=== PATIENT | female | born 1965 | race Caucasian/White ===

== ENCOUNTER 2018-03-08 00:43 | Outpatient (CLI) | payer BC, SELFPAY ==
--- NOTE | 2018-03-08 10:21 | DI.COMBO_ITS ---
SYMPTOM/DIAGNOSIS: F/U ABNL MAMMO, 6 MO FOLLOW UP, R92.8 RIGHT BREAST MAMMOGRAM AND RIGHT BREAST ULTRASOUND: Mammograms were interpreted according to the usual protocol including computer analysis with CAD system, tomosynthesis and C view imaging. Breast density, category B. No suspicious masses or microcalcifications are seen. The skin and axilla are unremarkable. There has been no significant change compared to the prior examination. A right breast ultrasound was performed of the upper outer quadrant. There is again seen a well circumscribed, anechoic, avascular lesion at the 11 o'clock position of the right breast consistent with a cyst. No suspicious masses are seen sonographically. IMPRESSION: No evidence for malignancy. Yearly mammography should resume. Category 2. The findings were discussed with the patient on the date of the examination. MQSA ASSESSMENT OF FINDINGS: Negative with benign findings. Category 2. Patient will receive a letter notifying them of these results. BI-RADS category B. There are scattered areas of fibroglandular density.
== END 2018-03-08 01:03 ==
PROVIDERS: Visit Provider Nurse Practitioner Family
DX: Z12.31 Encounter for screening mammogram for malignant neoplasm of breast (principal); R92.8 Other abnormal and inconclusive findings on diagnostic imaging of breast; N60.01 Solitary cyst of right breast
CPT/HCPCS: 76642; 77061; 77065; G0279

== ENCOUNTER 2018-10-31 09:15 | Outpatient (CLI) | payer BC, SELFPAY ==
[2018-10-31 13:24] LABS: Anion Gap 7.8 mmol/L (3-11); BUN 17 mg/dL (7-18); CO2 28.2 mmol/L (21.0-32.0); CREATININE 0.93 mg/dL (0.55-1.02); Calcium 9.1 mg/dL (8.5-10.1); Calculated LDL 196; Chloride 107 mmol/L (98-107); Cholesterol 266 mg/dL (50-200); Glucose 90 mg/dL (70-100); HDL Cholesterol 44 mg/dL (40-60); Potassium 5.1 mmol/L (3.5-5.1); Sodium 143 mmol/L (136-145); Triglyceride 132 mg/dL (30-150)
[2018-11-01 10:28] LABS: HIV-1/2 Ag & Ab Screen Negative (NEGAT)
== END 2018-10-31 09:35 ==
PROVIDERS: PCP Nurse Practitioner Family; Visit Provider Nurse Practitioner Family
DX: E78.5 Hyperlipidemia, unspecified (principal); Z11.4 Encounter for screening for human immunodeficiency virus [HIV]; Z13.1 Encounter for screening for diabetes mellitus
CPT/HCPCS: 36415; 80048; 80061; 83721; 87389

== ENCOUNTER 2019-01-06 07:32 | Outpatient (CLI) | payer BC, SELFPAY ==
[2019-01-06 09:04] LABS: Calculated LDL 113 mg/dL; Cholesterol 195 mg/dL (50-200); HDL Cholesterol 57 mg/dL (40-60); Triglyceride 125 mg/dL (30-150)
== END 2019-01-06 07:52 ==
PROVIDERS: PCP Nurse Practitioner Family; Visit Provider Nurse Practitioner Adult Health
DX: E78.5 Hyperlipidemia, unspecified (principal)
CPT/HCPCS: 36415; 80061; 83721

== ENCOUNTER 2019-04-24 08:47 | Outpatient (CLI) | payer BC, SELFPAY ==
--- NOTE | 2019-04-24 09:00 | DI.MAMMO_ITS ---
EXAM: MG MAMMO SCREENING CLINICAL HISTORY: screening z12.31 TECHNIQUE: Mammograms were interpreted according to the usual protocol including computer analysis w [email or web address] CAD system, tomosynthesis and C-view imaging. COMPARISON: 2018 FINDINGS: The breasts are composed of scattered areas of fibroglandular density, breast density category B. Th ere are no suspicious masses or suspicious microcalcifications. There has been no significant interva l change when compared with the prior images. IMPRESSION: Category 1, negative mammogram. Yearly screening mammography is recommended. BI-RADS Cat 1 - Negative Breast Density - Category B - Scattered areas of fibroglandular density
== END 2019-04-24 09:07 ==
PROVIDERS: PCP Nurse Practitioner Family; Visit Provider Nurse Practitioner Family
DX: Z12.31 Encounter for screening mammogram for malignant neoplasm of breast (principal)
CPT/HCPCS: 77063; 77067

== ENCOUNTER 2019-11-07 03:45 | Outpatient (CLI) | payer BC, SELFPAY ==
[2019-11-07 07:40] LABS: Anion Gap 9.7 mmol/L (3-11); BUN 11 mg/dL (7-18); CO2 26.3 mmol/L (21.0-32.0); CREATININE 0.86 mg/dL (0.55-1.02); Calcium 9.2 mg/dL (8.5-10.1); Calculated LDL 121 mg/dL (<100); Chloride 107 mmol/L (98-107); Cholesterol 212 mg/dL (<200); Glucose 87 mg/dL (74-106); HDL Cholesterol 66 mg/dL (40-60); Potassium 4.3 mmol/L (3.5-5.1); Sodium 143 mmol/L (136-145); Triglyceride 125 mg/dL (<150)
== END 2019-11-07 04:05 ==
PROVIDERS: PCP Nurse Practitioner Family; Visit Provider Nurse Practitioner Family
DX: E78.5 Hyperlipidemia, unspecified (principal); Z13.1 Encounter for screening for diabetes mellitus
CPT/HCPCS: 36415; 80048; 80061

== ENCOUNTER 2020-01-30 00:58 | Outpatient (CLI) | payer OTHER, SELFPAY ==
--- NOTE | 2020-01-30 07:30 | DI.RAD_ITS ---
EXAM: XR LUMBAR SPINE COMPLETE CLINICAL HISTORY: Hip vs. lumbar?, HIP PAIN RT, LOW BACK PAIN, M25.551, M54.5. TECHNIQUE: 2D digital imaging was performed. COMPARISON: CT RENAL COLIC WO CONTRAST from 06/26/2016 FINDINGS: There are 5 lumbar type vertebral bodies. There is grade 1 pseudo spondylolisthesis of L4 on L5. Th is has progressed since the CT scan from 06/26/2016. No spondylolysis is present. Disc space narrowi ng and endplate osteophytes are seen at L5-S1. There are degenerative changes of the facets at L4-5 and L5-S1. No acute fractures or subluxations are present. There are surgical clips in the right up per quadrant of the abdomen. IMPRESSION: 1. Degenerative changes in the lower lumbar spine. 2. Grade 1 pseudo spondylolisthesis of L4 on L5 which has progressed since 06/26/2016. DATA REPOSITORY: RADIATION DOSE DELIVERED:
--- NOTE | 2020-01-30 07:30 | DI.RAD_ITS ---
EXAM: XR HIP RT COMPLETE AP PELVIS CLINICAL HISTORY: Hip vs. SI joint?, PAIN RT HIP, M25.551. TECHNIQUE: 2D digital imaging was performed. COMPARISON: No exams were available for comparison FINDINGS: BONES: No acute fracture is present. No bony destructive lesion is seen. JOINTS: No dislocation present. SOFT TISSUE: Normal. IMPRESSION: Unremarkable radiographs of the right hip. Unremarkable radiographs of the pelvis. DATA REPOSITORY: RADIATION DOSE DELIVERED:
== END 2020-01-30 01:18 ==
PROVIDERS: PCP Nurse Practitioner Family; Visit Provider Nurse Practitioner Family
DX: M47.816 Spondylosis without myelopathy or radiculopathy, lumbar region (principal); M43.16 Spondylolisthesis, lumbar region; M25.551 Pain in right hip
CPT/HCPCS: 72110; 73502

== ENCOUNTER 2020-05-07 00:51 | Outpatient (CLI) | payer OTHER, SELFPAY ==
--- NOTE | 2020-05-07 11:46 | DI.MAMMO_ITS ---
EXAM: MAMMO SCREENING CLINICAL HISTORY: screening,Z12.39 TECHNIQUE: Mammograms were interpreted according to the usual protocol including computer analysis w [employer] CAD system, tomosynthesis and C-view imaging. COMPARISON: FINDINGS: The breasts are of moderate density with fairly symmetrical distribution of fibroglandular tissue. N o dominant mass or clumped microcalcification is identified in either breast. The current examinatio n is compared with previous examinations including March 2019 and there has been no gross interval change in appearance in comparison with the prior studies. IMPRESSION: No specific evidence of malignancy at this time. Routine screening examinations are suggested yearly intervals in this age group according to the ACS ACR guidelines. BI-RADS Category 1 - Negative Breast Density - Category B - Scattered areas of fibroglandular density
== END 2020-05-07 01:11 ==
PROVIDERS: PCP Nurse Practitioner Family; Visit Provider Nurse Practitioner Family
DX: Z12.31 Encounter for screening mammogram for malignant neoplasm of breast (principal)
CPT/HCPCS: 77063; 77067

== ENCOUNTER 2020-08-24 22:41 | Emergency (ER) | payer OTHER, SELFPAY ==
[2020-08-24 22:46] VITALS: BP 122/80; PULSE 113; RESP 18; TEMP 36.6; O2SAT 99
--- NOTE | 2020-08-24 22:58 | ED.GENADUL_ITS ---
Discharge Plan Disposition Patient Disposition: HOME Condition: Good Discharge Details Clinical Impression: Pain, dental, Acute pulpitis Primary Care Provider: Radha Leyva ED Provider: Kahlil Sandoval Home Meds and New Rx's Prescriptions: New penicillin V potassium 500 mg tablet 500 mg PO QID 10 Days Qty: 40 RF: 0 Continued aspirin 81 mg tablet,delayed release (DR/EC) 81 mg PO DAILY RF: 0 Women's 50 Plus Multivitamin 400 mcg-500 mg calcium-20 mcg tablet 1 tab PO RF: 0 atorvastatin 80 mg tablet 80 mg PO DAILY Qty: 90 RF: 3 Discharge Instructions Instructions: Penicillin V (By mouth), Hydrocodone/Acetaminophen (By mouth), Toothache (ED) Additional Instructions: At this time you have a mild infection of your tooth but no abscess that needs drainage. You have decided to defer the numbing injection at this time however if you change your mind at any point you can come back for a dental block. Please continue to take Tylenol and Motrin for pain. Please take the antibiotic penicillin as directed. Your prescription has been electronically faxed to your [facility] drugstore. Please take the pain pill [place] only as needed. The pain pill does contain some Tylenol, and so do not take additional Tylenol with this. Please contact your dentist as soon as possible for reassessment. If you notice any worsening of your symptoms, or any new symptoms such as vomiting, diarrhea, fever, chills, shortness of breath, chest pain, numbness, weakness, or fainting , please return immediately to the emergency department for reevaluation. Please follow up with your primary care provider as soon as possible for reassessment and reevaluation. As always, it was a pleasure participating in your medical care today. Referrals: Radha Leyva NP [Primary Care Provider] - Discharge Data Discharge Date/Time-TO BE ENTERED AT DEPARTURE: 08/24/20 23:20 Medical Decision Making 55-year-old female with a past medical history of dental caries presents today for evaluation of left upper tooth pain. Patient states that for the past 2 weeks she has had mild pain in the left upper area, she does not have a dentist. She has been taking Tylenol and Motrin which has been helping until the last few days. She denies any drainage or discharge. She denies any difficulty swallowing or drinking. She denies fever or chills. No recent antibiotics. No other complaints at this time. Exam demonstrates mild dental caries, no periapical abscess. Vital signs stable, afebrile, no evidence of systemic disease. Patient does not want a dental block at this time. Will give antibiotics/penicillin, recommend Tylenol and Motrin for home use. Will give [place] to go as needed for pain. Will give dental sheet. Discussed red flags which to return. I have extensively reviewed the treatment plan and discharge instructions with the patient. I have addressed all patient concerns at this time. The patient was made aware of what symptoms to monitor for that would warrant a return to the emergency department. Discussed the plan with the patient, they demonstrate verbal understanding and agreement with our assessment and plan at this time. The documentation in this chart was dictated using [employer] dictation software. Please excuse any dictation errors. HPI General Date/Time Provider Initiated Documentation: 08/24/20 22:50 . HPI Narrative: 55-year-old female with a past medical history of dental caries presents today for evaluation of left upper tooth pain. Patient states that for the past 2 weeks she has had mild pain in the left upper area, she does not have a dentist. She has been taking Tylenol and Motrin which has been helping until the last few days. She denies any drainage or discharge. She denies any difficulty swallowing or drinking. She denies fever or chills. No recent antibiotics. No other complaints at this time. Related Data Home Medications Medication Instructions Recorded Confirmed [id number] ac 400 1 tab PO 01/09/19 01/25/20 mcg-calcium carb 500 mg-vit K1 20 mcg tablet aspirin 81 mg tablet,delayed 81 mg PO DAILY 11/02/19 08/24/20 release atorvastatin 80 mg tablet 80 mg PO DAILY #90 tab-cap 11/08/19 08/24/20 penicillin V potassium 500 mg PO QID 10 Days #40 tab 08/24/20 Previous Rx's Medication Instructions Recorded atorvastatin 80 mg tablet 80 mg PO DAILY #90 tab-cap 11/08/19 penicillin V potassium 500 mg PO QID 10 Days #40 tab 08/24/20 Allergies Allergy/AdvReac Type Severity Reaction Status Date / Time codeine AdvReac Intermediate migraines Unverified 08/24/20 22:49 oxycodone HCl [From Percocet] AdvReac Intermediate GI Upset Unverified 08/24/20 22:49 General Stated Complaint: DentalOral ELIAS: 3 Review of Systems All systems reviewed & are unremarkable except as noted in HPI and below PFSH Medical History 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 Jordan) said pt did not need to do further pap smears (last pap in 2002 was WNL) Cholecystitis (07/21/12) Chronic low back pain (11/19/14) Hot flashes (11/19/14) Hyperlipidemia 10/2018 labs: LDL > 190; 10/2019 labs: Increased from 40 to 80 mg due to LDL not at goal Osteochondromatosis (12/24/14) Surgical History Abdominal hysterectomy 1997 section three Cholecystectomy (07/07/12) Laparoscopic, Dr. Evans Knee surgery four times Ligation of fallopian tube 1993 Meniscectomy (03/12/15) partial left knee Dr Montaño Family History Father , Dementia at age 82. Alcohol abuse Neoplasm Bladder CA Myocardial infarction related to stress Cancer Bladder cancer Mother , COPD at age 63. COPD (chronic obstructive pulmonary disease) Grandmother Diabetes Essential hypertension Stroke Sister Diabetes Maternal Uncle Heart disease Myocardial infarction Maternal Aunt Heart disease Myocardial infarction Sister Hyperlipidemia Cancer Brain cancer Brother Alcohol abuse Grandmother , Cancer Neoplasm ?type (thinks was fruit dumper related) Breast cancer Social History Smoking/Tobacco Use Status: Never Smoking risk assessment performed?: Yes Alcohol Intake: former Drug use: Never Substance use type: does not use Adopted: No Caregiver/Support person: No Foster care: No Household members: none Number of Children: 3 Communication Needs: None current occupation: Cannery Worker Pets and animals: Yes Pets and animals: cat(s) Sexually active: No Current gender identity: female What type of physical activity do you participate in: walking Duration: 30-45 minutes/day Frequency: daily Seatbelt use: always Water heater temp set <120 deg: Yes Working smoke detector in home: Yes Fire extinguisher in home: Yes Carbon monox detector in home: No Firearms in home: No Do you feel safe in your relationship?: Yes Female Reproductive History Menstrual Menopause type: surgical Exam Narrative Exam Narrative: 1.Const: Well-nourished, Well-developed, appearing stated age 2.Eyes: PERRL, no conjunctival injection, and symmetrical lids. 3.ENT: Atraumatic external nose and ears. Moist MM. Neck: Symmetric, trachea midline, No thyromegaly. Mild dental caries, old cavity noted in the left upper teeth around tooth 12. No large periapical swelling or abscess that I can appreciate. No drainage. No evidence of Ludewig's angina, airway compromise or other abnormality. 4.CVS: +S1/S2, No murmurs or gallops. Peripheral pulses 2+ and equal in all extremities. Brisk capillary refill in all extremities. 5.RESP: Unlabored respiratory effort. Clear to auscultation bilaterally. No wheezes rales or rhonchi 6.GI: Soft, Nontender/Nondistended, No hepatosplenomegaly. No guarding or rebound. 7.MSK: Normocephalic/Atraumatic, Extremities w/o deformity or ttp No cyanosis or clubbing, Normal movement of all extremities 8.Skin: Warm, Dry. No rashes or lesions. 9.Neuro: bracelet and brooch maker II-XII grossly intact. Sensation grossly intact, no focal neurologic deficits. 10.Psych: (AAO) x3. Appropriate mood and affect Course Vital Signs Vital signs: Vital Signs Temperature 36.6 C 08/24/20 22:46 Pulse 113 H 08/24/20 22:46 Respiratory Rate 18 08/24/20 22:46 Blood Pressure 122/80 08/24/20 22:46 Pulse Oximetry 99 08/24/20 22:46 Temperature 36.6 C 08/24/20 22:46 Pulse 113 H 08/24/20 22:46 Respiratory Rate 18 08/24/20 22:46 Respiratory Effort Non-Labored 08/24/20 22:50 Blood Pressure 122/80 08/24/20 22:46 Pulse Oximetry 99 08/24/20 22:46 Pain Level 10 08/24/20 22:50
[2020-08-24] MEDS: Penicillin V POTASSIUM 500 MG TAB, 4 TABS/BTL PO (23:05)
== END 2020-08-24 23:20 | disposition home or self-care (01) ==
PROVIDERS: Emergency Provider Student in an Organized Health Care Education/Training Program; PCP Nurse Practitioner Family
DX: K04.01 Reversible pulpitis (principal)
CPT/HCPCS: 99283

== ENCOUNTER 2020-11-05 03:45 | Outpatient (CLI) | payer OTHER, SELFPAY ==
[2020-11-05 07:40] LABS: HCT 37.2 % (36.0-46.0); HGB 11.8 g/dL (11.2-15.7); MCH 29.4 pg (27.0-33.0); MCHC 31.7 % (32.0-36.0); MCV 92.5 fL (80-95); MPV 9.5 fL (8.0-11.0); Platelet Count 252 10^3/uL (130-400); RBC 4.02 10^6/uL (3.93-5.22); RDW 12.5 % (11.7-14.6); WBC 4.26 10^3/uL (4.4-10.8)
[2020-11-05 08:39] LABS: Anion Gap 6.7 mmol/L (3-11); BUN 19 mg/dL (7-18); CO2 29.3 mmol/L (21.0-32.0); Calcium 9.2 mg/dL (8.5-10.1); Calculated LDL 119 mg/dL (<100); Chloride 110 mmol/L (98-107); Cholesterol 200 mg/dL (<200); Estimated GFR 57.78 (mL/min/1.73m2); Glucose 100 mg/dL (74-106); HDL Cholesterol 61 mg/dL (40-60); Sodium 146 mmol/L (136-145); Triglyceride 101 mg/dL (<150)
[2020-11-06 11:01] LABS: Hepatitis C Ab w Rflx HCV PCR Negative (Negative)
== END 2020-11-05 03:46 | disposition home or self-care (01) ==
LOC: LBO 03:45
PROVIDERS: PCP Nurse Practitioner Family; Visit Provider Nurse Practitioner Family
DX: E78.5 Hyperlipidemia, unspecified (principal); Z79.899 Other long term (current) drug therapy; Z11.59 Encounter for screening for other viral diseases; Z13.1 Encounter for screening for diabetes mellitus
CPT/HCPCS: 36415; 80048; 80061; 85027; 86803

== ENCOUNTER 2020-11-14 09:54 | Outpatient (REF) | payer OTHER, SELFPAY ==
[2020-11-14 21:12] LABS: COMMENT (LAB VIEW ONLY) 396.55 mg/dL; Microalb ug/mg Crea 9.2 ug/mg Cr
== END 2020-11-14 09:55 | disposition home or self-care (01) ==
LOC: LBN 09:54
PROVIDERS: PCP Nurse Practitioner Family; Visit Provider Nurse Practitioner Family
DX: N28.9 Disorder of kidney and ureter, unspecified (principal)
CPT/HCPCS: 82043; 82570

== ENCOUNTER 2020-11-28 10:43 | Outpatient (CLI) | payer OTHER, SELFPAY ==
--- NOTE | 2020-11-28 10:15 | DI.RAD_ITS ---
Exam(s) XR KNEE LT 3V AP,LAT,ELDA EXAM: XR KNEE LT 3V AP,LAT,ELDA CLINICAL HISTORY: LEFT KNEE PAIN. TECHNIQUE: 2D digital imaging was performed. COMPARISON: CR LEFT KNEE 4+ VIEWS from 12/24/2014 FINDINGS: There is no evidence of acute fracture. However, there does appear to be a joint effusion which was not evident in 2015. There are mild degenerative changes. There is soft tissue swelling posteriorly behind the knee and multiple calcifications again noted in this region. These may represent loose b odies within of the medic may represent loose bodies. On the frontal view there is soft tissues swel ling-abnormal density located medially. Consistent with some type of soft tissue mass, possibly dege nerative large in degenerative meniscal cyst or more concerning mass. MRI recommended. IMPRESSION: Findings as above. MRI recommended. DATA REPOSITORY: RADIATION DOSE DELIVERED:
== END 2020-11-28 10:44 | disposition home or self-care (01) ==
LOC: DIORS 10:44
PROVIDERS: PCP Nurse Practitioner Family; Referring Provider Nurse Practitioner Family; Visit Provider Student in an Organized Health Care Education/Training Program
DX: M17.12 Unilateral primary osteoarthritis, left knee (principal)
CPT/HCPCS: 73562

== ENCOUNTER 2020-12-31 02:08 | Outpatient (CLI) | payer OTHER, SELFPAY ==
--- NOTE | 2020-12-31 07:15 | DI.MRI_ITS ---
Exam(s) MR LOWER JOINT LT WO EXAM: MR LOWER JOINT LT WO CLINICAL HISTORY: knee pain, oa lt knee, m17.12. TECHNIQUE: Multiplanar multisequence MRI was performed. 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 Prior MRI was obtained in 2014. That examination showed multiple synovial masses in the left knee. Findings on today's ex amination are similar, with lobulated multi focal masses identified which appear to originate from sy novium at multiple locations. The infrapatellar and suprapatellar regions are mostly spared.. No co nvincing bony erosion seen. The MR findings may represent synovial chondromatosis, other etiologies including PV NS are not excluded. Additional evaluation with gradient echo imaging could be obtained to rule out PVNS. There is a small joint effusion. The articular cartilage of all 3 joints of the knee appears slightl y thinned but otherwise intact. No tear of the medial or lateral menisci or attachments identified. No collateral ligament injury id entified medially or laterally. The anterior and posterior cruciate ligaments and attachments appear intact. Quadriceps tendon and patellar tendon appear intact. No patellar retinacular tear seen. IMPRESSION: Stable appearance of synovial masses of the knee since 2015 examination. No evidence of internal jocelyn angement at this time. If there is differential consideration for PVNS, additional evaluation with gradient echo imaging cou ld be obtained. DATA REPOSITORY:
== END 2020-12-31 02:28 ==
PROVIDERS: PCP Nurse Practitioner Family; Visit Provider Student in an Organized Health Care Education/Training Program
DX: M17.12 Unilateral primary osteoarthritis, left knee (principal); M67.862 Other specified disorders of synovium, left knee
CPT/HCPCS: 73721

== ENCOUNTER 2021-03-17 02:41 | Outpatient (CLI) | payer OTHER, SELFPAY ==
[2021-03-17 11:39] LABS: Source Nasal/Nares
[2021-03-17 20:55] LABS: COVID-19 PCR Negative (Negative)
== END 2021-03-17 02:42 | disposition home or self-care (01) ==
LOC: LBO 02:41
PROVIDERS: PCP Nurse Practitioner Family; Referring Provider Student in an Organized Health Care Education/Training Program; Visit Provider Student in an Organized Health Care Education/Training Program
DX: Z20.822 Contact with and (suspected) exposure to COVID-19 (principal); Z01.818 Encounter for other preprocedural examination
CPT/HCPCS: 87635

== ENCOUNTER 2021-03-18 10:00 | Day surgery (SDC) | payer OTHER, SELFPAY ==
[2021-03-18] VITALS (10 sets, daily range): BP systolic 120–148; BP diastolic 71–103; PULSE 53–66; RESP 12–18; TEMP 36.1–36.5; O2SAT 96–100; BMI 29.8
--- NOTE | 2021-03-18 09:32 | PDOC.DSDIS_ITS ---
Documented by User: ELIANE Cotton 03/18/21 09:34 Discharge Plan Disposition Patient Disposition: HOME Condition: Good Discharge Details Reason For Visit: Left Knee Arthroscopy Attending Provider: Spencer Montaño Primary Care Provider: Radha Leyva Home Meds and New Rx's Prescriptions: New acetaminophen [Tylenol Extra Strength] 500 mg tablet 500 mg PO Q6H PRNQty: 90 RF: 0 ibuprofen 600 mg tablet 600 mg PO TID Qty: 90 RF: 0 hydrocodone-acetaminophen 5-325 mg tablet 1 tab PO Q4H PRN (Reason: pain) Qty: 14 RF: 0 Continued aspirin 81 mg tablet,delayed release (DR/EC) 81 mg PO DAILY RF: 0 atorvastatin 80 mg tablet 80 mg PO DAILY Qty: 90 RF: 3 Women's 50 Plus Multivitamin 400 mcg-500 mg calcium-20 mcg tablet 1 tab PO DAILY RF: 0 Discharge Instructions Stand Alone Forms: [facility] Knee Arthroscopy Referrals: Spencer Montaño MD [ [facility] STAFF PHYSICIAN] - Equipment/Supplies: Partial Weight Bearing Crutches Activity:: Activity as Tolerated Remove Dressings/Wound Care:: 72 hours Shower/Bathe:: 72 hours Diet:: As Tolerated Discharge Orders Discharge Orders: Discharge Order (Routine); Ordered 03/18/21 Ordered By: Monika Thakkar DS: Diagnosis Discharge Diagnosis (1) Internal derangement of left knee: Status: Acute (2) Loose body in knee, left knee: Status: Acute Documented by User: Spencer Montaño MD 03/18/21 12:33 Discharge Plan Disposition Patient Disposition: HOME Condition: Good Discharge Details Reason For Visit: Left Knee Arthroscopy Attending Provider: Spencer Montaño Primary Care Provider: Radha Leyva Home Meds and New Rx's Prescriptions: New acetaminophen [Tylenol Extra Strength] 500 mg tablet 500 mg PO Q6H PRNQty: 90 RF: 0 ibuprofen 600 mg tablet 600 mg PO TID Qty: 90 RF: 0 hydrocodone-acetaminophen 5-325 mg tablet 1 tab PO Q4H PRN (Reason: pain) Qty: 14 RF: 0 Continued aspirin 81 mg tablet,delayed release (DR/EC) 81 mg PO DAILY RF: 0 atorvastatin 80 mg tablet 80 mg PO DAILY Qty: 90 RF: 3 Women's 50 Plus Multivitamin 400 mcg-500 mg calcium-20 mcg tablet 1 tab PO DAILY RF: 0 Discharge Instructions Stand Alone Forms: [facility] K[facility] Arthroscopy Referrals: Spencer Montaño MD [ [facility] STAFF PHYSICIAN] - Equipment/Supplies: Partial Weight Bearing Crutches Activity:: Activity as Tolerated Remove Dressings/Wound Care:: 72 hours Shower/Bathe:: 72 hours Diet:: As Tolerated Discharge Orders Discharge Orders: Discharge Order (Routine); Ordered 03/18/21 Ordered By: Monika Thakkar
--- NOTE | 2021-03-18 10:45 | ANES.PREOP_ITS ---
General Info Date of Service Date Performed: 03/18/21 Height: 5 ft 2.5 in Weight: 75.3 kg Body Mass Index (BMI): 29.8 Surgical Procedure: Operation Date: 03/18/21 12:10 Proposed Procedures Side Surgeon p Knee Arthroscopy WITH REMOVAL LOOSE BODIES AND SYNOVECTOMY Left Spencer Montaño MD Meds Allergies and Home Medications Allergies Allergy/AdvReac Type Severity Reaction Status Date / Time codeine AdvReac Intermediate migraines Verified 03/18/21 10:18 oxycodone HCl [From Percocet] AdvReac Intermediate GI Upset Verified 03/18/21 10:18 Home Medication Medication Instructions Recorded [id number]-idp-artjf ac 400 1 tab PO DAILY 01/09/19 mcg-calcium carb 500 mg-vit K1 20 mcg tablet aspirin 81 mg tablet,delayed 81 mg PO DAILY 11/02/19 release atorvastatin 80 mg tablet 80 mg PO DAILY #90 tab-cap 11/14/20 acetaminophen [Tylenol Extra 500 mg PO Q6H PRN #90 tab 03/18/21 Strength] ibuprofen 600 mg PO TID #90 tab 03/18/21 Current Visit Medications: Current Medications Generic Name Dose Route Start Last Admin Trade Name Freq PRN Reason Stop Dose Admin Acetaminophen 650 mg 03/18/21 09:30 Acetaminophen 325 Mg Tab PO Q4H PRN PRN Hydrocodone Bitart/Acetaminophen 0 tab 03/18/21 09:30 Hydrocodone 5/Acetaminophen 325 Tab PO Q3H PRN PRN Pain Ondansetron HCl 4 mg/ Sodium 52 mls @ 200 mls/hr 03/18/21 09:30 Chloride IVPB Q6H PRN PRN Ringer's Solution 1,000 mls @ 80 mls/hr 03/18/21 06:00 IV 04/17/21 23:59 INFUSION BRENT Cefazolin Sodium/Dextrose 2 gm in 50 mls @ 100 mls/hr 03/18/21 06:00 Ancef Duplex IVPB 04/17/21 23:59 PREOP BRENT IV Miscellaneous Supplies 1 each 03/18/21 06:00 Iv Access IV 04/17/21 23:59 DIRECTED BRENT Sodium Chloride 0 ml 03/18/21 06:00 Normal Saline Flush 10 Ml Syr IV 04/17/21 23:59 PRN PRN Sodium Chloride 0 ml 03/18/21 06:00 Normal Saline 10 Ml Vial IJ 04/17/21 23:59 DIRECTED PRN Sterile Water 0 ml 03/18/21 06:00 Water,Injection,Sterile 10 Ml Vial IJ 04/17/21 23:59 DIRECTED PRN PFSH Active Problems Active Problems: Problem Status Onset Code Hip pain, right M25.551 Acute pulpitis K04.01 Loose body in knee, left knee M23.42 Internal derangement of left knee M23.92 Osteoarthritis of left knee M17.12 Obesity E66.9 Osteochondromatosis 12/24/14 D48.0 Hyperlipidemia E78.5 Chronic low back pain 11/19/14 M54.5, G89.29 Arthritis of neck 11/19/14 M47.812 Medical History Medical History 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 Jordan) said pt did not need to do further pap smears (last pap in 2002 was WNL) Cholecystitis (07/21/12) Chronic low back pain (11/19/14) Hot flashes (11/19/14) Hyperlipidemia 10/2020 labs: LDL still slightly high on high intensity statin therapy Obesity Osteoarthritis of left knee Osteochondromatosis (12/24/14) Surgical History Surgical History Abdominal hysterectomy 1997 section three Cholecystectomy (07/07/12) Laparoscopic, Dr. Evans Hx of tubal ligation Knee surgery x6 Ligation of fallopian tube 1994 Meniscectomy (03/12/15) partial left knee Dr Montaño Tobacco Smoking/Tobacco Use Status: Never Passive smoking exposure: No Alcohol Alcohol Intake: never Details: pt reports that she has not drank for many years Substance Use Substance use: Never Substance use type: does not use Vital Signs and Lab Results Vital Signs Most Recent Vital Signs in EMR: Most Recent Vital Signs Temp Pulse Resp BP Pulse Ox 36.4 C L 66 16 140/93 H 97 03/18/21 10:08 03/18/21 10:08 03/18/21 10:08 03/18/21 10:08 03/18/21 10:08 Lab Results Blood Type / Crossmatch: No Data to Display Complete Blood Count: No Data to Display Complete Metabolic Panel: No Data to Display Liver Function Panel: No Data to Display Coagulation Panel: No Data to Display Cardiac Panel: No Data to Display Arterial Blood Gas: No Data to Display Venous Blood Gas: No Data to Display Pancreas Panel: No Data to Display Thyroid Panel: No Data to Display Infectious Disease: Coronavirus (COVID-19)(PCR) Negative (Negative) 03/17/21 08:45 03/17/21 Coronavirus 2019 Source Nasal/Nares 03/17/21 08:45 03/17/21 Blood Cultures: No Data to Display Toxicology Panel: No Data to Display Panel: No Data to Display Anesthesia Assessment and Plan Anesthesia History Personal History: No History of Anesthesia Complications Family History: No Family History of Anesthesia Complications Exercise Tolerance Exercise Tolerance: Metabolic Equivalents>4 Pertinent Negatives Pertinent Negatives: No Symptoms of GERD, No Major Cardiovascular Symptoms or Complaints and No Major Pulmonary Symptoms or Complaints Cardiac & Pulmonary Exam Cardiac Exam: Normal S1/S2 Heart Sounds Pulmonary Exam: Clear Bilateral Breath Sounds Airway Exam Known Difficult Airway: No Mallampati Class: 2 Mouth Opening: Normal (> 3cm) Thyromental Distance: Greater than 3 cm Neck Range of Motion: Full ROM Neck Circumference: Normal Teeth Condition: Normal Dentition ASA Classification ASA Score: ASA 2 Emergency Case?: No NPO Status NPO Status: NPO Clears >2 hours, Solids >8 hours Status Status: Negative HCG Anesthesia Plan Resuscitation Status: Full Code Anesthesia Technique: General Anesthesia Airway Planned: LMA Pain Management: Surgeon and patient request nerve block Monitors Used: Standard Monitors
[2021-03-18] MEDS: Lactated Ringers 1,000 ML 80 ML IV (11:30)
[2021-03-18] MEDS: ceFAZolin 2 GM/50 ML BAG IVPB (11:33)
[2021-03-18] MEDS: Bupivacaine 0.5% Pres-Free 30 ML VIAL (12:19)
[2021-03-18] MEDS: fentaNYL 100 MCG/2 ML VIAL IVP (13:35)
--- NOTE | 2021-03-18 13:56 | W.PM.OP ---
Date of service: 03/18/21 Time of Service: 12:35 Operative Note Operative Note DATE OF PROCEDURE: 03/18/21 PRE-OP DIAGNOSIS: Left Knee Synovial Chondromatosis POST-OP DIAGNOSIS: same Left Knee Medial Full Thickness Chondral Defect PROCEDURE: Arthroscopic Synovectomy and Removal of Loose Bodies - Left Knee SURGEON: Spencer Montaño ANESTHESIA TYPE: General LMA/ETT Refer to Anesthesia Record ESTIMATED BLOOD LOSS: 0 PATHOLOGY: none sent TOURNIQUET TIME: 0 COMPLICATIONS: None Patient was transported to: PACU Patient's condition: stable Indications: I have seen Shelia in clinic for symptoms of pain about the left knee with documented synovial masses and impinging symptoms. This was confirmed based on MRI and exam findings. Nonoperative measures were exhausted but disability and pain persisted. I discussed knee arthroscopy with synovectomy and loose body removal with the patient. I reviewed the risks of the procedure to include, but not limited to, bleeding, infection, pain, stiffness, damage to nerves or vessels, recurrence, blood clot. Despite these risks, the patient elected to proceed. Findings: A diagnostic arthroscopy was performed with the following findings: Suprapatellar Pouch: Minimal inflamatory change, 1 loose cartilage body Medial Compartment: No meniscal tear, Intact meniscal root, Focal area of Grade IV chondromalacia over the distal-central femur (4x8mm), 2 loose bodies from the gutter Notch: ACL and PCL were intact, large tethered loose body in the notch Lateral Compartment: No meniscal tear, Intact meniscal root, Grade I chondromalacia throughout, 1 loose body from the lateral gutter Patellofemoral Compartment: Grade I chondromalacia, No apparent patellar maltracking Procedure Description: Shelia was greeted in the preoperative holding area where the correct side was identified and marked. The consent was reviewed with the patient and signed. The history and physical was updated. All questions were answered. She was taken back to the operating room. The patient was placed into the supine position on the operating room table. A nonsterile tourniquet was placed high onto the leg but not used. All bony prominences were well padded. Prophylactic antibiotics in the form of cefazolin were administered. The left leg was then prepped with Chloraprep and draped in a standard fashion with stockinette and extremity drape. A timeout to confirm correct identity, side and site, procedure, allergies, anesthesia, and medical concerns was performed. The leg was placed into a pneumatic leg murray, [id number]. A standard lateral portal was made at the lateral border of the patella tendon in line with the inferior pole of the patella, soft spot. The skin and deep tissue was incised sharply and the blunt trochar was inserted atraumatically. A diagnostic arthroscopy was performed and the findings are listed above. The suprapatellar pouch had mild inflammatory changes. The patellofemoral articulation showed grade I chondromalacia as well as good tracking. The lateral gutter had 1 loose body and the medial gutter had 2 loose bodies. The knee was brought into some valgus stress in extension to open the medial compartment. A medial portal was made, localized by a spinal needle. The portal was created with an #11 blade through skin and capsule under direct visualization avoiding any meniscal injury. A probe was then inserted into the medial compartment. The medial compartment was fully inspected. The chondral surface of the tibia showed diffuse grade I chondromalacia and the surface of the femur showed grade I/II chondromalacia with a focal area of grade IV chondromalacia over the distal?central aspect of the femur approximately 4 x 8 mm . The medial meniscus had no meniscal tear. The notch was then inspected which showed an intact ACL and an intact PCL. There was a very large the leg was then brought into a figure of 4 position. The lateral compartment was fully inspected with the arthroscope and a probe. The chondral surface of the lateral femur showed grade I chondromalacia. The chondral surface of the lateral tibia showed grade I chondromalacia. The lateral meniscus had no meniscal tear. The 3 loose bodies were removed with a shaver. One of the loose bodies required a grasper to remove Myrick as it was too large. The loose body attached to synovium within the notch of the knee was removed with a grasper as well. A gentle synovectomy was performed throughout the suprapatellar pouch, medial gutter, lateral gutter, and anterior soft tissues. A minimal chondroplasty was performed over the loose edge of cartilage over the distal, medial femur. The arthroscope was brought back into the suprapatellar pouch and the leg was in full extension. The knee was thoroughly irrigated with the arthroscopic fluid on high flow and pressure. Inflow was stopped and excess fluid was removed. The wounds were closed with 4-0 Nylon. They were dressed with Xeroform, 4x4 gauze, ABD pad, Kerlix and an ROD wrap. A cryo-cuff was applied. The patient tolerated the procedure well and was returned to the Same Day Surgery area in a stable condition suffering no known complication.
[2021-03-18] MEDS: HYDROcodone 5/Acetaminophen 325 TAB PO (14:40)
--- NOTE | 2021-03-18 15:08 | W.ANESPOSTOP ---
Postoperative Evaluation Date, Time and Location Date Performed: 03/18/21 Time Performed: 15:08 Patient Location: Day Surgery Unit Vital Signs Most Recent Imported Vital Signs: Most Recent Vital Signs Temp Pulse Resp BP Pulse Ox 36.2 C L 55 L 17 140/80 99 03/18/21 14:43 03/18/21 14:43 03/18/21 14:43 03/18/21 14:43 03/18/21 14:43 Pain Score Most Recent Pain Score: Most Recent Pain Score Pain Level 7 03/18/21 14:43 Assessment Mental Status: Awake (Alert & Oriented to Patient Baseline) Airway and Respiratory Function: Patent airway with normal (patient baseline) respiratory exam Cardiovascular Function: Hemodynamically Stable Hydration Status: Adequately Hydrated Nausea & Vomiting: No Nausea or Vomiting Pain: Pt. Denies Any Pain Peripheral Nerve Block: Patient did not receive a nerve block
== END 2021-03-18 15:54 | disposition home or self-care (01) ==
PROVIDERS: PCP Nurse Practitioner Family; Visit Provider Student in an Organized Health Care Education/Training Program
PROC: (CPT 29870; principal; 2021-03-18 12:00)
DX: M67.862 Other specified disorders of synovium, left knee (principal); M23.42 Loose body in knee, left knee; N18.9 Chronic kidney disease, unspecified; E66.9 Obesity, unspecified
CPT/HCPCS: 29876; J0690; J1100; J1885; J2001; J2405; J3010

== ENCOUNTER 2021-05-15 00:54 | Outpatient (CLI) | payer OTHER, SELFPAY ==
--- NOTE | 2021-05-15 10:22 | DI.MAMMO_ITS ---
Exam(s) MAMMO SCREENING EXAM: MAMMO SCREENING CLINICAL HISTORY: screening,Z12.39. TECHNIQUE: Bilateral full field digital CC and MLO mammographic images were obtained with 3D tomosyn thesis and utilizing computer aided detection (CAD). COMPARISON: Prior mammograms dating back to 2018, the most recent being April 2020. Breast ultrasound February 2018 was reviewed FINDINGS: There has been no significant change in the appearance and distribution of the fibroglandular tissue. There are no CAD designations. No new significant radiographic findings in the left breast. In the right breast there is an asymmetric density noted anteriorly which is unchanged from at least March 2019. A smaller nodule more posteriorly located on the CC view in the right breast approxima tely 8 cm in from the nipple is also unchanged from 2018 and therefore benign. There are no malignant-appearing microcalcification groups is region or elsewhere in either breast. No new architectural distortion or skin thickening-traction. IMPRESSION: Stable benign findings. No radiographic evidence of malignancy. BI-RADS Category 2 - Benign Findings Breast Density - Category B - Scattered areas of fibroglandular density Breast density Category C or D implies that the patient has dense breast tissue. Dense breast tissue can make it harder to find cancer on a mammogram. Dense breast tissue is also associated with an incr eased risk of breast cancer. This information about the result of the mammogram report was provided to the patient to raise their awareness. Use this report when you speak with the patient about their risks for breast cancer, which includes their family history. At that time, you may recommend additional screening tests (Ultrasoun d or MRI) as these tests may add significant information. A negative radiographic report should not delay biopsy if a dominant or clinically suspicious mass is present. Up to ten percent of cancers are not identified on mammography. A negative report may reinforce clinical impression. Adenosis and dense breasts may obscure an underlying neoplasm. False positive reports average 6 to 10%. Patient will receive a letter notifying them of these results.
== END 2021-05-15 01:14 ==
PROVIDERS: PCP Nurse Practitioner Family; Visit Provider Nurse Practitioner Family
DX: Z12.31 Encounter for screening mammogram for malignant neoplasm of breast (principal)
CPT/HCPCS: 77063; 77067

== ENCOUNTER 2021-11-13 03:50 | Outpatient (CLI) | payer OTHER, SELFPAY ==
[2021-11-13 07:30] LABS: Absolute Basophil Count 0.04 10^3/uL (0.0-0.2); Absolute Eosinophil Count 0.32 10^3/uL (0.0-0.7); Absolute Lymphocyte Count 1.71 10^3/uL (1.2-3.4); Absolute Neutrophil Count 2.31 10^3/uL (1.2-6.7); Basophils % 0.8; Eosinophils % 6.6; HCT 35.8 % (36.0-46.0); HGB 12.1 g/dL (11.2-15.7); MCH 30.6 pg (27.0-33.0); MCHC 33.8 % (32.0-36.0); MCV 91 fL (80-95); MPV 9.9 fL (8.0-11.0); Monocytes % 10.2; Neutrophils % 47.4; Platelet Count 229 10^3/uL (130-400); RBC 3.95 10^6/uL (3.93-5.22); RDW 11.9 % (11.7-14.6); RDW-SD 39.4 fL; WBC 4.88 10^3/uL (4.4-10.8)
[2021-11-13 08:56] LABS: Anion Gap 7.9 mmol/L (3-11); BUN 15 mg/dL (7-18); CO2 28.1 mmol/L (21.0-32.0); CREATININE 0.9 mg/dL (0.55-1.02); Calcium 8.8 mg/dL (8.5-10.1); Calculated LDL 116 mg/dL (<100); Chloride 108 mmol/L (98-107); Cholesterol 191 mg/dL (<200); Glucose 89 mg/dL (74-106); HDL Cholesterol 58 mg/dL (40-60); Potassium 3.9 mmol/L (3.5-5.1); Sodium 144 mmol/L (136-145); Triglyceride 86 mg/dL (<150)
== END 2021-11-13 03:51 | disposition home or self-care (01) ==
LOC: LBO 03:51
PROVIDERS: PCP Nurse Practitioner Family; Visit Provider Nurse Practitioner Family
DX: E78.5 Hyperlipidemia, unspecified (principal); N28.9 Disorder of kidney and ureter, unspecified; Z13.1 Encounter for screening for diabetes mellitus; Z51.81 Encounter for therapeutic drug level monitoring
CPT/HCPCS: 36415; 80048; 80061; 85025

== ENCOUNTER 2022-05-19 00:52 | Outpatient (CLI) | payer OTHER, SELFPAY ==
--- NOTE | 2022-05-19 06:30 | DI.MAMMO_ITS ---
Exam(s) MAMMO SCREENING EXAM: MAMMO SCREENING CLINICAL HISTORY: screening,Z12.39. TECHNIQUE: Bilateral full field digital CC and MLO mammographic images were obtained with 3D tomosyn thesis and utilizing computer aided detection (CAD). COMPARISON: Prior mammograms were reviewed. FINDINGS: There has been no significant change in the appearance and distribution of the fibroglandular tissue. There are no CAD designations. There are no new spiculated masses nor malignant appearing microcalcification groups. Two asymmetric densities in the right breast seen the CC view appear unchanged from prior mammograms therefore probably benign. There is no significant architectural distortion nor skin thickening-retraction. IMPRESSION: No radiographic evidence of malignancy. Stable benign findings. BI-RADS Category 2 - Benign Findings Breast Density - Category B - Scattered areas of fibroglandular density Breast density Category C or D implies that the patient has dense breast tissue. Dense breast tissue can make it harder to find cancer on a mammogram. Dense breast tissue is also associated with an incr eased risk of breast cancer. This information about the result of the mammogram report was provided to the patient to raise their awareness. Use this report when you speak with the patient about their risks for breast cancer, which includes their family history. At that time, you may recommend additional screening tests (Ultrasoun d or MRI) as these tests may add significant information. A negative radiographic report should not delay biopsy if a dominant or clinically suspicious mass is present. Up to ten percent of cancers are not identified on mammography. A negative report may reinforce clinical impression. Adenosis and dense breasts may obscure an underlying neoplasm. False positive reports average 6 to 10%. Patient will receive a letter notifying them of these results.
== END 2022-05-19 01:12 ==
PROVIDERS: PCP Nurse Practitioner Family; Visit Provider Nurse Practitioner
DX: Z12.31 Encounter for screening mammogram for malignant neoplasm of breast (principal)
CPT/HCPCS: 77063; 77067

== ENCOUNTER 2022-11-16 04:14 | Outpatient (CLI) | payer OTHER, SELFPAY ==
[2022-11-16 13:17] LABS: Abs Immature Grans 0.02 10^3/uL (0.0-0.06); Absolute Basophil Count 0.05 10^3/uL (0.0-0.2); Absolute Eosinophil Count 0.33 10^3/uL (0.0-0.7); Absolute Lymphocyte Count 1.75 10^3/uL (1.2-3.4); Absolute Monocyte Count 0.46 10^3/uL (0.1-0.8); Absolute Neutrophil Count 2.83 10^3/uL (1.2-6.7); Basophils % 0.9; Eosinophils % 6.1; HCT 39.3 % (36.0-46.0); HGB 12.5 g/dL (11.2-15.7); Immature Grans % 0.4; Lymphocytes % 32.2; MCH 28.7 pg (27.0-33.0); MCHC 31.8 % (32.0-36.0); MCV 90 fL (80-95); MPV 9.6 fL (8.0-11.0); Monocytes % 8.5; Neutrophils % 51.9; Platelet Count 284 10^3/uL (130-400); RBC 4.36 10^6/uL (3.93-5.22); RDW-SD 43.1 fL; WBC 5.44 10^3/uL (4.4-10.8)
[2022-11-16 14:09] LABS: ALT 35 U/L (14-59); AST 23 U/L (15-37); Albumin 3.8 g/dL (3.4-5.0); Alkaline Phosphatase 87 U/L (46-116); Anion Gap 7.1 mmol/L (3-11); BUN 17 mg/dL (7-18); Bilirubin, Total 0.5 mg/dL (0.2-1.0); CO2 27.9 mmol/L (21.0-32.0); CREATININE 0.8 mg/dL (0.55-1.02); Calcium 9.1 mg/dL (8.5-10.1); Calculated LDL 117 mg/dL (<100); Chloride 106 mmol/L (98-107); Cholesterol 198 mg/dL (<200); Estimated GFR 86.42 (mL/min/1.73m2); Glucose 94 mg/dL (74-106); HDL Cholesterol 59 mg/dL (40-60); Sodium 141 mmol/L (136-145); Total Protein 7.7 g/dL (6.4-8.2); Triglyceride 113 mg/dL (<150)
== END 2022-11-16 04:15 | disposition home or self-care (01) ==
PROVIDERS: PCP Nurse Practitioner Family; Visit Provider Nurse Practitioner Family
DX: E78.5 Hyperlipidemia, unspecified (principal); Z13.1 Encounter for screening for diabetes mellitus; Z51.81 Encounter for therapeutic drug level monitoring; E66.8 Other obesity
CPT/HCPCS: 36415; 80053; 80061; 85025

== ENCOUNTER → 2023-06-08 01:07 | Outpatient (CLI) | payer OTHER, SELFPAY ==
--- NOTE | 2023-06-08 07:06 | DI.MAMMO_ITS ---
Exam(s) MAMMO SCREENING EXAM: MAMMO SCREENING CLINICAL HISTORY: screening,Z12.39. TECHNIQUE: Bilateral full field digital CC and MLO mammographic images were obtained with 3D tomosyn thesis and utilizing computer aided detection (CAD). COMPARISON: Prior mammograms were reviewed. FINDINGS: There are no new findings in left breast. In the right breast there is an asymmetric density anteriorly which is unchanged from prior mammogram s. However, more posterolaterally there is an asymmetric density in the right breast which is more e vident than on prior mammograms. Spot compression view recommended. This is located approximately 9 cm in from the nipple, lateral of center on the CC view. There are no malignant-appearing microcalcification groups in this region or elsewhere in either [address]. There is no significant architectural distortion nor skin thickening-retraction. IMPRESSION: 1. No radiographic evidence of malignancy in left breast. 2. Asymmetric density-possible nodule in the right breast as described above. Spot compression CC vi ew and breast ultrasound recommended. BI-RADS Category 0 - Assessment Incomplete: Need additional imaging evaluation Breast Density - Category B - Scattered areas of fibroglandular density Breast density Category C or D implies that the patient has dense breast tissue. Dense breast tissue can make it harder to find cancer on a mammogram. Dense breast tissue is also associated with an incr eased risk of breast cancer. This information about the result of the mammogram report was provided to the patient to raise their awareness. Use this report when you speak with the patient about their risks for breast cancer, which includes their family history. At that time, you may recommend additional screening tests (Ultrasoun d or MRI) as these tests may add significant information. A negative radiographic report should not delay biopsy if a dominant or clinically suspicious mass is present. Up to ten percent of cancers are not identified on mammography. A negative report may reinforce clinical impression. Adenosis and dense breasts may obscure an underlying neoplasm. False positive reports average 6 to 10%. Patient will receive a letter notifying them of these results.
== END ==
PROVIDERS: Visit Provider Nurse Practitioner Family
DX: Z12.31 Encounter for screening mammogram for malignant neoplasm of breast (principal); R92.8 Other abnormal and inconclusive findings on diagnostic imaging of breast
CPT/HCPCS: 77063; 77067

== ENCOUNTER → 2023-06-17 02:04 | Outpatient (CLI) | payer OTHER, SELFPAY ==
--- NOTE | 2023-06-17 | DI.MAMMO_ITS ---
Exam(s) MG MAMMO SCREEN CALL BACK UNI US BREAST RT LIMITED EXAM: MG MAMMO SCREEN CALL BACK UNI CLINICAL HISTORY: ASYMMETRIC DENSITY RIGHT BREAST R92.8 ABNL MAMMO. TECHNIQUE: Craniocaudal and mediolateral oblique spot compression digital Mammography views of the r ight breast followed by Tomosynthesis and right breast ultrasound. COMPARISON: US US BREAST RT LIMITED from 06/17/2023 Mammograms 2018 through recent exam 08 June 2023. FINDINGS: Mammography/Tomosynthesis: Masses/Architectural Distortion: Question Jose asymmetry in the lateral right breast is less promine nt on spot compression views. Microcalcifictions: No suspicious pleomorphic-type are seen. Skin Thickening/Nipple Retraction: None. Right breast US: Echotexture: Normal appearance of the glandular tissue. Shadowing: No suspicious foci. Cyst: No 5 millimeter simple cyst 11 o'clock position 2 cm from the nipple which does not correspond to the area in question. This likely corresponds to the area of nodularity seen in the anterior [address], present on multiple prior exams.. Solid lesions: None seen. Ductal dilation: None. IMPRESSION: 1. No evidence of malignancy is noted. 2. Unless there is more urgent need, follow-up screening mammography is recommended, as per [place] [employer] guidelines. 3. The findings were discussed with the patient on the date of the examination. BI-RADS Category 2 - Benign Findings Breast Density - Category B - Scattered areas of fibroglandular density A negative radiographic report should not delay biopsy if a dominant or clinically suspicious mass is present. Up to ten percent of cancers are not identified on mammography. A negative report may reinforce clinical impression. Adenosis and dense breasts may obscure an underlying neoplasm. False positive reports average 6 to 10%. Patient will receive a letter notifying them of these results.
== END ==
PROVIDERS: Visit Provider Nurse Practitioner Family
DX: Z12.31 Encounter for screening mammogram for malignant neoplasm of breast (principal); R92.8 Other abnormal and inconclusive findings on diagnostic imaging of breast
CPT/HCPCS: 76642; 77063; 77067

== ENCOUNTER 2023-12-07 04:49 | Outpatient (CLI) | payer OTHER, SELFPAY ==
[2023-12-07 08:35] LABS: HCT 38.1 % (36.0-46.0); HGB 12.2 g/dL (11.2-15.7)
[2023-12-07 08:51] LABS: ALT 36 U/L (14-59); AST 22 U/L (15-37); Albumin 3.7 g/dL (3.4-5.0); Alkaline Phosphatase 91 U/L (46-116); BUN 17 mg/dL (7-18); CREATININE 0.9 mg/dL (0.55-1.02); Calcium 9.3 mg/dL (8.5-10.1); Calculated LDL 119 mg/dL (<100); Chloride 108 mmol/L (98-107); Cholesterol 206 mg/dL (<200); Estimated GFR 74.57 (mL/min/1.73m2); Glucose 95 mg/dL (74-106); HDL Cholesterol 55 mg/dL (40-60); Potassium 3.8 mmol/L (3.5-5.1); Sodium 144 mmol/L (136-145); Total Protein 7.4 g/dL (6.4-8.2); Triglyceride 161 mg/dL (<150)
== END 2023-12-07 04:50 | disposition home or self-care (01) ==
PROVIDERS: PCP Student in an Organized Health Care Education/Training Program; Visit Provider Nurse Practitioner Family
DX: Z13.1 Encounter for screening for diabetes mellitus (principal); E78.5 Hyperlipidemia, unspecified; Z51.81 Encounter for therapeutic drug level monitoring
CPT/HCPCS: 36415; 80053; 80061; 85014; 85018

== ENCOUNTER 2024-06-09 00:24 | Outpatient (CLI) | payer OTHER, SELFPAY ==
--- NOTE | 2024-06-09 08:47 | DI.MAMMO_ITS ---
Exam(s) MAMMO SCREENING EXAM: MAMMO SCREENING CLINICAL HISTORY: screening,Z12.39 TECHNIQUE: Bilateral full field digital CC and MLO mammographic images were obtained with 3D tomosyn thesis and utilizing computer aided detection (CAD). COMPARISON: Available for comparison. FINDINGS: Masses/Architectural Distortion: None seen. Microcalcifications: No suspicious pleomorphic-type are seen. Skin Thickening/Nipple Retraction: None. IMPRESSION: 1. No significant interval change with no specific features of malignancy noted. 2. Unless there is more urgent need, screening mammography is recommended, as per [employer] [place] guidelines. BI-RADS Category 1 - Negative Breast Density - Category B - Scattered areas of fibroglandular density Breast density category C or D implies that the patient has dense breast tissue. Dense breast tissue is very common and is not abnormal but dense breast tissue can make it harder to find cancer on a ma mmogram. Also, dense breast tissue may increase their breast cancer risk. This information about the result of the mammogram report was provided to the patient to raise their awareness. Use this report when you speak with the patient about their risks for breast cancer, which includes their family hist ory. At that time, you may recommend for more screening tests (Ultrasound or MRI) as they might be us eful based on their risk. A negative radiographic report should not delay biopsy if a dominant or clinically suspicious mass is present. Up to ten percent of cancers are not identified on mammography. A negative report may reinforce clinical impression. Adenosis and dense breasts may obscure an underlying neoplasm. False positive reports average 6 to 10%. Patient will receive a letter notifying them of these results.
== END 2024-06-09 00:44 ==
LOC: DI 00:24
PROVIDERS: PCP Student in an Organized Health Care Education/Training Program; Visit Provider Student in an Organized Health Care Education/Training Program
DX: Z12.31 Encounter for screening mammogram for malignant neoplasm of breast (principal); R92.323 Mammographic fibroglandular density, bilateral breasts
CPT/HCPCS: 77063; 77067

== ENCOUNTER 2024-12-12 03:43 | Outpatient (CLI) | payer OTHER, SELFPAY ==
[2024-12-12 08:24] LABS: Anion Gap 8.2 mmol/L (3-11); BUN 21 mg/dL (7-18); CO2 28.8 mmol/L (21.0-32.0); Calcium 8.9 mg/dL (8.5-10.1); Calculated LDL 109 mg/dL (<100); Chloride 108 mmol/L (98-107); Cholesterol 186 mg/dL (<200); Estimated GFR 85.35 (mL/min/1.73m2); Glucose 93 mg/dL (74-106); HDL Cholesterol 61 mg/dL (>or=50); Potassium 3.8 mmol/L (3.5-5.1); Sodium 145 mmol/L (136-145); Triglyceride 80 mg/dL (<150)
== END 2024-12-12 03:44 | disposition home or self-care (01) ==
PROVIDERS: PCP Student in an Organized Health Care Education/Training Program; Referring Provider Student in an Organized Health Care Education/Training Program; Visit Provider Student in an Organized Health Care Education/Training Program
DX: Z91.89 Other specified personal risk factors, not elsewhere classified (principal); Z13.220 Encounter for screening for lipoid disorders
CPT/HCPCS: 36415; 80048; 80061